=== PATIENT | male | born 1990 | race Caucasian/White ===

== ENCOUNTER 2020-12-29 11:10 | Emergency (ER) | payer OTHER ==
[2020-12-29 11:39] VITALS: BP 151/92
--- NOTE | 2020-12-29 12:25 | XRAY Report ---
PROCEDURE: Toe(s) LT INDICATIONS: trauma TECHNIQUE: 3 views of the fifth toe(s) acquired. COMPARISON: None FINDINGS: Bones: No fractures or dislocations. No suspicious bony lesions. Soft tissues: No suspicious soft tissue densities. IMPRESSION: No visualized acute fracture or dislocation. However, occult injury cannot be excluded. Recommend jerrell rt interval imaging follow-up in 7-10 days as clinically indicated for additional evaluation. Reviewed by: Kerri Young MD on 12/29/2020 12:24 PM PDT Approved by: Kerri Young MD on 12/29/2020 12:24 PM PDT Station ID: [id number]
--- NOTE | 2020-12-29 13:07 | ED Physician Documentation ---
PD HPI LOWER EXT INJURY - Stated complaint Stated Complaint: LT TOE INJ - Chief complaint Chief Complaint: Trauma Ext - History obtained from History obtained from: Patient - Additional information Additional information: Patient comes emergency department chief complaint of stubbed toe. He states that he was walking and hit his toe on the edge of a mirror that his frame and solid wood. He states the incident happened 2 days ago and that he has noticed swelling, bruising, and pain of his left small toe. No other injuries or complaints. Review of Systems Ten Systems: 10 systems reviewed and negative Constitutional: reports: Reviewed and negative Eyes: reports: Reviewed and negative Ears: reports: Reviewed and negative Nose: reports: Reviewed and negative Throat: reports: Reviewed and negative Cardiac: reports: Reviewed and negative Respiratory: reports: Reviewed and negative GI: reports: Reviewed and negative : reports: Reviewed and negative Skin: reports: Other (Contusion, swelling, left small toe) Musculoskeletal: reports: Extremity pain, Extremity swelling Neurologic: reports: Reviewed and negative Psychiatric: reports: Reviewed and negative Endocrine: reports: Reviewed and negative Immunocompromised: reports: Reviewed and negative PD PAST MEDICAL HISTORY - Present Medications Home Medications: Ambulatory Orders Medication Instructions Recorded Confirmed No Known Home Medications 12/29/20 12/29/20 - Allergies Allergies/Adverse Reactions: Allergies Allergy/AdvReac Type Severity Reaction Status Date / Time No Known Drug Allergies Allergy Verified 12/29/20 11:39 PD ED PE NORMAL - Vitals Vital signs reviewed: Yes - General General: Alert and oriented X 3, No acute distress, Well developed/nourished - HEENT HEENT: Atraumatic, PERRL, EOMI, Moist mucous membranes - Neck Neck: Supple, no meningeal sign - Cardiac Cardiac: Strong equal pulses - Respiratory Respiratory: No respiratory distress - Derm Derm: Warm and dry, No rash, Other (Contusion left small toe with mild edema) - Extremities Extremities: No deformity, Other (Left small toe. Mild edema. Mild tenderness palpation over toe without extension over the fifth metatarsal.) - Neuro Neuro: Alert and oriented X 3 - Psych Psych: Normal mood, Normal affect Results - Vitals Vitals: Vital Signs - 24 hr 12/29/20 11:37 Temperature 36.9 C Heart Rate 72 Respiratory 16 Rate Blood Pressure 151/92 H O2 Saturation 99 Oxygen O2 Source Room air - Rads (name of study) L foot XR Radiology: Final report received, EMP read indepedently, See rad report (neg) PD MEDICAL DECISION MAKING - ED course Complexity details: reviewed results, re-evaluated patient, considered differential, d/w patient ED course: X-ray was performed of the affected foot and found to be negative. Discussed symptomatic management at home the usual indications for return. Departure - Departure Disposition: 01 Home, Self Care Clinical Impression: Contusion of toe of left foot Qualifiers: Encounter type: initial encounter Toe: lesser toe Damage to nail status: without damage Qualified Code(s): S90.122A - Contusion of left lesser toe(s) without damage to nail, initial encounter Condition: Stable Instructions: ED Sprain Toe Comments: Your x-ray is negative. Discharge Date/Time: 12/29/20 13:11
== END 2020-12-29 13:11 | disposition home or self-care (01) ==
LOC: ED 11:10
DX: S90.122A Contusion of left lesser toe(s) without damage to nail, initial encounter (principal); W22.03XA Walked into furniture, initial encounter; Y93.01 Activity, walking, marching and hiking
CPT/HCPCS: 73660; 99282; 99283